=== PATIENT | female | born 1980 | race Hispanic/Latino ===

== ENCOUNTER 2023-01-02 18:51 | Emergency (ER) | payer SELFPAY ==
[2023-01-02] MEDS ORDERED: NA CHLORIDE 0.9% 1,000 ML ONE (19:34)
[2023-01-02] MEDS ORDERED: MORPHINE 4 MG/ML SYR ONE ×2 (19:34→20:03)
[2023-01-02] MEDS ORDERED: ONDANSETRON 4 MG/2 ML VIAL ONE (19:34)
[2023-01-02 19:39] LABS: Specific Gravity 1.026 (1.005-1.030)
[2023-01-02 19:40] LABS: Absolute Lymphocytes (CBC) 3.3 K/uL (0.7-4.9); Hematocrit 37.7 % (36.0-45.0); Lymphocytes % 24.8 % (15.3-44.8); MCV 94.7 fL (80-100); MPV 8.2 fL (7.6-11.3); Platelets 304 thou/uL (152-406); RBC Red Blood Cell Count 3.98 M/uL (3.86-4.86)
[2023-01-02 19:43] LABS: Specific Gravity 1.026 (1.005-1.030); Urine Bacteria <20 /HPF (<20); Urine Bilirubin NEGATIVE (Negative); Urine Blood 2+ (Negative); Urine Clarity Turbid (Clear); Urine Color Light-Yellow (Yellow); Urine Glucose NEGATIVE (Negative); Urine Mucus Slight /HPF (None Seen); Urine Protein TRACE (Negative); Urine RBC >50 /HPF (None Seen); Urine Urobilinogen Normal (Normal); Urine pH 5.5 (5.0-7.0)
[2023-01-02] MEDS ORDERED: KETOROLAC 30 MG/ML INJ ONE (20:04)
[2023-01-02 20:08] LABS: Albumin 3.7 g/dL (3.4-5.0); Bilirubin Total 0.2 mg/dL (0.2-1.0); Potassium 3.4 mEq/L (3.5-5.1); Protein, Total 7.6 g/dL (6.4-8.2)
--- NOTE | 2023-01-02 21:16 | RAD REPORT ---
EXAM DESCRIPTION: CT - Abdomen Pelvis W Contrast - 01/02/2023 8:54 pm CLINICAL HISTORY: ABD PAIN COMPARISON: No comparisons TECHNIQUE: Thin cut axial CT imaging of the abdomen and pelvis was performed following intravenous a dministration of 100 mL Isovue 300. Multiplanar reformats were generated and reviewed. All CT scans are performed using dose optimization technique as appropriate and may include automated exposure control or mA/KV adjustment according to patient size. FINDINGS: No suspicious findings in the lung bases. The liver, spleen, adrenal glands, and pancreas show no suspicious findings. Gallbladder and biliary tree are also without suspicious finding. Symmetric renal function is seen with no suspicious renal mass. Moderate left hydroureteronephrosis. 9 millimeter left vesicoureteral junction calculus. No dilated bowel loops or bowel wall thickening. No free air, free fluid or inflammatory stranding. N o hernia, mass or bulky lymphadenopathy. The urinary bladder is without significant finding. No suspicious bony findings. IMPRESSION: Moderate left hydroureteronephrosis. Nine millimeters left vesicoureteral junction calcu erendira. The findings were communicated to Gio Badillo on 01/02/2023 at 21:11 hours.
[2023-01-02] MEDS ORDERED: CEFTRIAXONE 1000 MG/VIAL ONE (21:20)
--- NOTE | 2023-01-02 21:32 | ER ---
Nurse's Notes [facility] Name: Gabbie Lakhani Age: 42 yrs Sex: Female : 1980 Arrival Date: 01/02/2023 Time: 18:51 Bed 8 Private MD: Diagnosis: Hydronephrosis with renal and ureteral calculous obstruction-9 mm UVJ Presentation: 01/02 18:53 Chief complaint: Patient states: LLQ abdominal pain onset 2hrs [employer]. Pt reports 2 cm10 episodes of vomiting. No fever. Coronavirus screen: Vaccine status: Patient reports being unvaccinated. Client denies travel out of the [place] in the last 14 days. Ebola Screen: Patient denies travel to an Ebola-affected area in the 21 days before illness onset. No symptoms or risks identified at this time. Initial Sepsis Screen: Does the patient meet any 2 criteria? No. Patient's initial sepsis screen is negative. Does the patient have a suspected source of infection? No. Patient's initial sepsis screen is negative. Risk Assessment: Do you want to hurt yourself or someone else? Patient reports no desire to harm self or others. Onset of symptoms was January 02, 2023. 18:53 Method Of Arrival: EMS: [facility] cm10 18:53 Acuity: AZIZA 3 cm10 Triage Assessment: 18:55 General: Appears uncomfortable, Behavior is calm, cooperative. Pain: Complains of pain cm10 in suprapubic area and left lower quadrant Pain radiates to left upper quadrant Pain currently is 8 out of 10 on a pain scale. Neuro: No deficits noted. Level of Consciousness is awake, alert, obeys commands, Oriented to person, place, time, situation. Cardiovascular: No deficits noted. Patient's skin is warm and dry. Respiratory: No deficits noted. Airway is patent Respiratory effort is even, unlabored, Respiratory pattern is regular, symmetrical. GI: No deficits noted. Abdomen is flat, Reports lower abdominal pain, nausea, vomiting. : No deficits noted. No signs and/or symptoms were reported regarding the genitourinary system. Derm: No deficits noted. No signs and/or symptoms reported regarding the dermatologic system. Skin is intact, Skin is pink, warm \T\ dry. Musculoskeletal: No deficits noted. Circulation, motion, and sensation intact. Range of motion: intact in all extremities. Historical: - Allergies: 18:54 No Known Allergies; cm10 - Home Meds: 18:54 None [Active]; cm10 - PMHx: 18:54 None; cm10 - PSHx: 18:54 section; Ligation of fallopian tube; cm10 - Immunization history:: Adult Immunizations unknown. - Social history:: Smoking status: Patient denies any tobacco usage or history of. - Family history:: not pertinent. Screenin:56 [facility] ED Fall Risk Assessment (Adult) History of falling in the last 3 months, cm10 including since admission No falls in past 3 months (0 pts) Confusion or Disorientation No (0 pts) Intoxicated or Sedated No (0 pts) Impaired Gait No (0 pts) Mobility Assist Device Used No (0 pt) Altered Elimination No (0 pt) Score/Fall Risk Level 0 - 2 = Low Risk Oriented to surroundings, Maintained a safe environment, Hourly rounding (assess needs \T\ fall precautionary measures) done. Abuse screen: Denies threats or abuse. Denies injuries from another. Nutritional screening: No deficits noted. Tuberculosis screening: No symptoms or risk factors identified. Assessment: 19:15 Reassessment: ASSUMED CARE OF PT. PT SITTING IN BED. C/O ABD PAIN. URINE SAMPLING ON jj7 COUNTER. ORDERED MEDS GIVEN. VS STABLE. WARM BLANKET PROVIDED. 19:15 GI: Bowel sounds present X 4 quads. jj7 Vital Signs: 18:53 BP 150 / 81; Pulse 87; Resp 16; Temp 98(O); Pulse Ox 100% ; Weight 68 kg; Height 5 ft. cm10 1 in. ; Pain 8/10; 19:15 BP 117 / 73; Pulse 65; Resp 19; Pulse Ox 100% on R/A; Pain 8/10; jj7 20:15 BP 117 / 81; Pulse 88; Resp 16; Pulse Ox 100% ; Pain 1/10; jj7 22:00 BP 111 / 72; Pulse 80; Resp 16; Pulse Ox 99% ; Pain 0/10; jj7 18:53 Body Mass Index 27.94 (68.00 kg, 156 cm) cm10 18:53 Pain Scale: Adult cm10 19:15 Pain Scale: Adult jj7 20:15 Pain Scale: Adult jj7 22:00 Pain Scale: Adult jj7 ED Course: 18:53 Patient arrived in ED. cm10 18:54 Triage completed. cm10 18:56 Sathish Bravo MD is Attending Physician. rt 18:56 Arm band placed on Patient placed in an exam room, on a stretcher, on pulse oximetry. cm10 18:56 Patient has correct armband on for positive identification. Placed in gown. Bed in low cm10 position. Call light in reach. Side rails up X2. Provided Education on: ER process and procedures.. Pulse ox on. NIBP on. 18:57 Initial lab(s) drawn, by ED staff, sent to lab. Inserted saline lock: 22 gauge in right cm10 antecubital area, using aseptic technique. Blood collected. 18:58 Sally Lyons, RN is Primary Nurse. cm10 19:34 CBC with Diff Sent. jj7 19:34 CMP Sent. jj7 19:34 Lipase Sent. jj7 19:34 Test, Urine Sent. jj7 19:34 Urinalysis w/ reflexes Sent. jj7 20:29 Chela Mccray, NARAYAN is Primary Nurse. jj7 20:56 CT Abd/Pelvis - IV Contrast Only In Process Unspecified. EDMS 21:16 Attending Physician role handed off by Sathish Bravo MD kisha 21:16 Gio Badillo MD is Attending Physician. kisha 21:27 Robbie Mondragon MD is Referral Physician. kisha 22:01 No provider procedures requiring assistance completed. IV discontinued, intact, jj7 bleeding controlled, No redness/swelling at site. Pressure dressing applied. Administered Medications: 19:29 Drug: NS 0.9% IV 1000 ml IV at 1 bolus Per protocol; 1000 mL bolus Route: IV; Rate: 1 jj7 bolus; Site: right antecubital; 20:49 Follow up: IV Status: Completed infusion jj7 19:29 Drug: Ondansetron IVP 4 mg IVP once; over 2 minutes Route: IVP; Site: right antecubital;jj7 19:40 Follow up: Response: Marked relief of symptoms jj7 19:29 Drug: morphine IVP or IV 4 mg IVP once over 4 mins Route: IVP; Infused Over: 4 mins; jj7 Site: right antecubital; 19:56 Follow up: Response: No change in condition jj7 19:55 Drug: Ketorolac IVP 15 mg IVP once Route: IVP; Site: right antecubital; jj7 20:37 Follow up: Response: Pain is decreased jj7 19:55 Drug: morphine IVP or IV 4 mg IVP once over 4 mins Route: IVP; Infused Over: 4 mins; jj7 Site: right antecubital; 20:37 Follow up: Response: Pain is decreased jj7 21:15 Drug: Rocephin IV 1 grams IV at per protocol once; Given slow IV push per pharmacy jj7 instructions Route: IV; Rate: per protocol; Site: right antecubital; 22:09 Follow up: IV Status: Completed infusion jj7 21:45 Drug: HYDROmorphone IVP 1 mg IVP once Route: IVP; Site: right antecubital; jj7 22:02 Follow up: Response: Marked relief of symptoms; Pain is decreased jj7 22:09 Follow up: Response: Marked relief of symptoms jj7 21:58 Drug: Ciprofloxacin PO 500 mg PO once Route: PO; jj7 22:02 Follow up: Response: No adverse reaction jj7 22:00 Drug: Flomax PO 0.4 mg PO once Route: PO; jj7 22:02 Follow up: Response: No adverse reaction jj7 22:04 Not Given (Patient Refused): ns 0.9% 1000 ml IV at 1 bolus Per protocol; 1000 mL bolus jj7 Medication: 18:56 VIS not applicable for this client. cm10 Outcome: 21:32 Discharge ordered by . kisha 22:01 Discharged to home ambulatory, with family, jj7 22:01 Condition: improved 22:01 Discharge instructions given to patient, family, Instructed on discharge instructions, follow up and referral plans. medication usage, Demonstrated understanding of instructions, follow-up care, medications, Prescriptions given X 4, 22:07 Patient left the ED. jj7 Signatures: Dispatcher [employer] EDMS Gio Badillo MD MD cha Johnson, Juwairiyah, RN RN jj7 Sathish Bravo MD MD rt Martinez, Clarissa, RN RN cm10
--- NOTE | 2023-01-02 21:32 | EDPHYS ---
Physician Documentation [facility] Name: Gabbie Lakhani Age: 42 yrs Sex: Female : 1980 Arrival Date: 01/02/2023 Time: 18:51 Bed 8 Private MD: MARLEN Physician Gio Badillo HPI: 01/02 19:50 This 42 yrs old Female presents to ER via EMS with complaints of Abdominal rt Pain. 19:50 Patient presents to the ED with an acute onset of a left lower quadrant pain starting rt about 2 hours prior to arrival. She reports nausea without vomiting. Denies hematemesis, hematochezia. Last bowel movement was this morning and was normal. The patient denies aggravating or alleviating factors. Symptoms are aching nature, nonradiating, no other aggravating or alleviating factor. Historical: - Allergies: 18:54 No Known Allergies; cm10 - Home Meds: 18:54 None [Active]; cm10 - PMHx: 18:54 None; cm10 - PSHx: 18:54 section; Ligation of fallopian tube; cm10 - Immunization history:: Adult Immunizations unknown. - Social history:: Smoking status: Patient denies any tobacco usage or history of. - Family history:: not pertinent. ROS: 19:50 Constitutional: Negative for fever, chills, and weight loss, Cardiovascular: Negative rt for chest pain, palpitations, and edema, Respiratory: Negative for shortness of breath, cough, wheezing, and pleuritic chest pain, MS/Extremity: Negative for injury and deformity, Skin: Negative for injury, rash, and discoloration, Neuro: Negative for headache, weakness, numbness, tingling, and seizure, Psych: Negative for depression, anxiety, suicide ideation, homicidal ideation, and hallucinations, 19:50 Abdomen/GI: Positive for abdominal pain, nausea and vomiting, Exam: 19:50 Constitutional: This is a well developed, well nourished patient who is awake, alert, rt and in no acute distress. Head/Face: Normocephalic, atraumatic. Chest/axilla: Normal chest wall appearance and motion. Nontender with no deformity. No lesions are appreciated. Cardiovascular: Regular rate and rhythm with a normal S1 and S2. No gallops, murmurs, or rubs. Normal PMI, no JVD. No pulse deficits. Respiratory: Lungs have equal breath sounds bilaterally, clear to auscultation and percussion. No rales, rhonchi or wheezes noted. No increased work of breathing, no retractions or nasal flaring. Skin: Warm, dry with normal turgor. Normal color with no rashes, no lesions, and no evidence of cellulitis. MS/ Extremity: Pulses equal, no cyanosis. Neurovascular intact. Full, normal range of motion. Neuro: Awake and alert, GCS 15, oriented to person, place, time, and situation. Cranial nerves II-XII grossly intact. Motor strength 5/5 in all extremities. Sensory grossly intact. Cerebellar exam normal. Normal gait. Psych: Awake, alert, with orientation to person, place and time. Behavior, mood, and affect are within normal limits. 19:50 Abdomen/GI: Tenderness to the left lower quadrant without guarding, rebound, distention,, Vital Signs: 18:53 BP 150 / 81; Pulse 87; Resp 16; Temp 98(O); Pulse Ox 100% ; Weight 68 kg; Height 5 ft. cm10 1 in. ; Pain 8/10; 19:15 BP 117 / 73; Pulse 65; Resp 19; Pulse Ox 100% on R/A; Pain 8/10; jj7 20:15 BP 117 / 81; Pulse 88; Resp 16; Pulse Ox 100% ; Pain 1/10; jj7 22:00 BP 111 / 72; Pulse 80; Resp 16; Pulse Ox 99% ; Pain 0/10; jj7 18:53 Body Mass Index 27.94 (68.00 kg, 156 cm) cm10 18:53 Pain Scale: Adult cm10 19:15 Pain Scale: Adult jj7 20:15 Pain Scale: Adult jj7 22:00 Pain Scale: Adult jj7 MDM: 18:57 Patient medically screened. rt 01/02 19:03 Order name: CBC with Diff; Complete Time: 19:45 rt 01/02 19:03 Order name: CMP; Complete Time: 20:09 rt 01/02 19:03 Order name: Lipase; Complete Time: 20:09 rt 01/02 19:03 Order name: Test, Urine; Complete Time: 19:45 rt 01/02 19:03 Order name: Urinalysis w/ reflexes; Complete Time: 19:45 rt 01/02 19:03 Order name: CT Abd/Pelvis - IV Contrast Only; Complete Time: 21:19 rt 01/02 19:03 Order name: IV Saline Lock; Complete Time: 19:34 rt 01/02 19:03 Order name: Labs collected and sent; Complete Time: 19:34 rt Administered Medications: 19:29 Drug: NS 0.9% IV 1000 ml IV at 1 bolus Per protocol; 1000 mL bolus Route: IV; Rate: 1 jj7 bolus; Site: right antecubital; 20:49 Follow up: IV Status: Completed infusion jj7 19:29 Drug: Ondansetron IVP 4 mg IVP once; over 2 minutes Route: IVP; Site: right antecubital;jj7 19:40 Follow up: Response: Marked relief of symptoms jj7 19:29 Drug: morphine IVP or IV 4 mg IVP once over 4 mins Route: IVP; Infused Over: 4 mins; jj7 Site: right antecubital; 19:56 Follow up: Response: No change in condition jj7 19:55 Drug: Ketorolac IVP 15 mg IVP once Route: IVP; Site: right antecubital; jj7 20:37 Follow up: Response: Pain is decreased jj7 19:55 Drug: morphine IVP or IV 4 mg IVP once over 4 mins Route: IVP; Infused Over: 4 mins; jj7 Site: right antecubital; 20:37 Follow up: Response: Pain is decreased jj7 21:15 Drug: Rocephin IV 1 grams IV at per protocol once; Given slow IV push per pharmacy jj7 instructions Route: IV; Rate: per protocol; Site: right antecubital; 22:09 Follow up: IV Status: Completed infusion jj7 21:45 Drug: HYDROmorphone IVP 1 mg IVP once Route: IVP; Site: right antecubital; jj7 22:02 Follow up: Response: Marked relief of symptoms; Pain is decreased jj7 22:09 Follow up: Response: Marked relief of symptoms jj7 21:58 Drug: Ciprofloxacin PO 500 mg PO once Route: PO; jj7 22:02 Follow up: Response: No adverse reaction jj7 22:00 Drug: Flomax PO 0.4 mg PO once Route: PO; jj7 22:02 Follow up: Response: No adverse reaction jj7 22:04 Not Given (Patient Refused): ns 0.9% 1000 ml IV at 1 bolus Per protocol; 1000 mL bolus jj7 Disposition Summary: 01/02/23 21:32 Discharge Ordered Notes: Location: Home kisha Problem: new kisha Symptoms: have improved kisha Condition: Stable kisha Diagnosis - Hydronephrosis with renal and ureteral calculous obstruction - 9 mm UVJ kisha Followup: kisha - With: Private Physician - When: 1 - 2 days - Reason: Recheck today's complaints, Continuance of care, Re-evaluation by your physician Followup: kisha - With: Robbie Mondragon MD - When: 1 - 2 days - Reason: Recheck today's complaints, Continuance of care, Re-evaluation by your physician Discharge Instructions: - Discharge Summary Sheet kisha - Kidney Stones kisha - Kidney Stones, [id number] kisha - Hydronephrosis [facility] Forms: - Medication Reconciliation Form [facility] - Thank You Letter [facility] - Antibiotic Education [facility] - Prescription Opioid Use [facility] - Patient Portal Instructions [facility] - Leadership Thank You Letter [facility] Prescriptions: - Flomax 0.4 mg Oral capsule - take 1 capsule ORAL route every 24 hours; 30 capsule; Refills: 0, Product [facility] Selection Permitted - acetaminophen-codeine 300-30 mg Oral tablet - take 2 tablet ORAL route every 6 hours; 20 tablet; Refills: 0, Product [facility] Selection Permitted - ondansetron HCl 4 mg Oral tablet - take 1 tablet ORAL route every 6-8 hours for 5 days; 20 tablet; Refills: 0, [facility] Product Selection Permitted - Cipro 500 mg Oral Tablet - take 1 tablet ORAL route every 12 hours for 7 days; 14 tablet; Refills: 0, [facility] Product Selection Permitted Signatures: Dispatcher [employer] Gio Moody MD MD cha Johnson, Juwairiyah, RN RN jj7 Sathish Bravo MD MD rt Martinez, Clarissa RN RN cm10
[2023-01-02] MEDS ORDERED: HYDROMORPHONE HCL 1 MG/ML INJ ONE (21:41)
[2023-01-02] MEDS ORDERED: CIPROFLOXACIN HCL 500 MG TAB ONE (22:08)
[2023-01-02 22:11] VITALS: TEMP 98; O2SAT 100
[2023-01-02] MEDS ORDERED: TAMSULOSIN 0.4 MG SR CAP ONE (22:12)
[2023-01-02 22:14] VITALS: BP 117/81
== END 2023-01-02 22:07 | disposition home or self-care (01) ==
LOC: ER 18:51
DX: N13.2 Hydronephrosis with renal and ureteral calculous obstruction (principal)
CPT/HCPCS: 36415; 74177; 80053; 81001; 81025; 83690; 85025; J0696; J1170; J2405; J7030; Q9967